=== PATIENT | female | born 1970 | race Caucasian/White ===

== ENCOUNTER 2016-10-12 12:03 | Emergency (ER) | payer OTHER | END 2016-10-12 13:00 | disposition home or self-care (01) | LOC: ER1 12:03 | DX: S39.012A Strain of muscle, fascia and tendon of lower back, initial encounter (principal); I10 Essential (primary) hypertension; E78.5 Hyperlipidemia, unspecified; K21.9 Gastro-esophageal reflux disease without esophagitis; Z79.82 Long term (current) use of aspirin; Z79.899 Other long term (current) drug therapy; X58.XXXA Exposure to other specified factors, initial encounter | CPT/HCPCS: 96372; 99283; J1100; J1885 ==

== ENCOUNTER → 2020-12-08 | Outpatient (CLI) | payer OTHER ==
[~2020-12-08] MED LIST: FLEXERIL 10 MG10 MG PO; NORCO 5-325 TA1 EACH PO; ULTRAM50 MG PO
== END ==
LOC: MRI 13:43
DX: M54.5 Low back pain (principal)
CPT/HCPCS: 72158; A9577

== ENCOUNTER 2021-05-31 01:09 | Emergency (ER) | payer OTHER ==
[2021-05-31 01:49] LABS: HEMOGLOBIN 14.4 gm/dl (12.3-15.3); RED BLOOD COUNT 4.44 M/UL (4.00-5.10); WHITE BLOOD COUNT 20.1 K/UL (4.5-11.0)
[2021-05-31 02:27] LABS: BUN/CREATININE RATIO 23 (0-10)
[2021-05-31] MEDS ORDERED: ZOFRAN ODT 4 MG4 MG GT (04:18)
[2021-05-31] MEDS ORDERED: FLAGYL 250 MG250 MG GT (04:18)
[2021-05-31] MEDS ORDERED: PERCOCET 5/325 T1 EA PO (04:18)
[2021-05-31] MEDS ORDERED: AUGMENTIN 875-1 EACH PO (04:18)
== END 2021-05-31 05:22 | disposition home or self-care (01) ==
LOC: ER1 01:09
PROVIDERS: Family Medicine
DX: K52.9 Noninfective gastroenteritis and colitis, unspecified (principal); E78.5 Hyperlipidemia, unspecified; I10 Essential (primary) hypertension; Z88.5 Allergy status to narcotic agent; F17.210 Nicotine dependence, cigarettes, uncomplicated
CPT/HCPCS: 71045; 80053; 81001; 82550; 82553; 83690; 84484; 84703; 85025; 87086; 93005; 96374; 96375; 99284; J0295; J2270; J2405; Q9967

== ENCOUNTER → 2021-08-31 | Outpatient (CLI) | payer OTHER ==
[~2021-08-31] MED LIST changes: +AUGMENTIN 875-1 EACH PO; +FLAGYL 250 MG250 MG GT; +PERCOCET 5/325 T1 EA PO; +ZOFRAN ODT 4 MG4 MG GT
== END ==
LOC: KOH-I 08:48
DX: M96.1 Postlaminectomy syndrome, not elsewhere classified (principal); M47.814 Spondylosis without myelopathy or radiculopathy, thoracic region
CPT/HCPCS: 72146

== ENCOUNTER → 2021-09-12 | Outpatient (CLI) | payer OTHER | LOC: LAB 09:36 | DX: M96.1 Postlaminectomy syndrome, not elsewhere classified (principal) | CPT/HCPCS: 36415; 83036; 87081 ==